=== PATIENT | male | born 1990 | race Two or more races ===

== ENCOUNTER 2021-08-27 07:56 | Inpatient (IN) | payer MEDICAID ==
[~2021-08-27] VITALS: Ht 167.6 cm; Wt 68.9 kg
[2021-08-27 08:26] LABS: COVID AG,FIA SOURCE NASOPHARYNGEAL
[2021-08-27 08:28] LABS: BASOPHILS % (AUTO) 0.3 % (0.0-2.0); EOSINOPHILS % (AUTO) 3.3 % (1.0-6.0); HEMATOCRIT 46.6 % (41-53); HEMOGLOBIN 15.4 g/dL (13.5-17.5); LYMPHOCYTES # (AUTO) 0.7 K/uL (1.0-4.8); LYMPHOCYTES % (AUTO) 5.2 % (22.0-44.0); MEAN CORPUSCULAR HEMOGLOBIN 27.9 pg (26.0-34.0); MEAN CORPUSCULAR VOLUME 85 fL (80-100); MONOCYTES # (AUTO) 1.4 K/uL (0.1-1.0); MONOCYTES % (AUTO) 10.1 % (2.0-9.0); NEUTROPHILS # (AUTO) 11.2 K/uL (1.8-7.7); NEUTROPHILS % (AUTO) 81.1 % (40.0-70.0); PLATELET COUNT (AUTO) 303 K/uL (150-450); RED BLOOD CELL COUNT(AUTO) 5.51 MIL/uL (4.50-5.90); RED CELL DISTRIBUTION WIDTH 14.2 % (11.5-14.5)
[2021-08-27 08:44] LABS: ANION GAP 8 mmol/L (8-16); CALCIUM, TOTAL 9.1 mg/dL (8.8-10.5); CARBON DIOXIDE 31 mmol/L (22-29); CHLORIDE 107 mmol/L (98-107); CREATININE 1.01 mg/dL (0.60-1.30); GLOMERULAR FILTR. RATE CALC > 60 mL/min (>60); GLUCOSE,RANDOM 57 mg/dL (70-110); POTASSIUM 3.7 mmol/L (3.5-5.1); SODIUM SERUM 146 mmol/L (136-145); UREA NITROGEN, BLOOD 11 mg/dL (7-18)
[2021-08-27 08:49] LABS: ALANINE AMINOTRANSFERASE 32 U/L (12-78); ALBUMIN 4.2 g/dL (3.4-5.0); ALKALINE PHOSPHATASE 104 U/L (46-116); ASPARTATE AMINOTRANSFERASE 28 U/L (15-37); BILIRUBIN,TOTAL 0.3 mg/dL (0.1-1.0); TOTAL PROTEIN, SERUM 7.3 g/dL (6.4-8.2)
[2021-08-27 09:13] LABS: AMPHET/METH SCREEN,URINE POSITIVE (NEGATIVE); BARBITURATE SCREEN, URINE NEGATIVE (NEGATIVE); BENZODIAZEPINES SCREEN,URINE NEGATIVE (NEGATIVE); CANNABINOID SCREEN,URINE POSITIVE (NEGATIVE); COCAINE SCREEN,URINE NEGATIVE (NEGATIVE); METHADONE SCREEN, URINE NEGATIVE (NEGATIVE); OPIATE SCREEN,URINE NEGATIVE (NEGATIVE)
[2021-08-27 09:19] LABS: PHENCYCLIDINE SCREEN,URINE NEGATIVE (NEGATIVE)
[2021-08-27] MEDS ORDERED: LORazepam 2 MG TABLET PO PRN (10:30)
[2021-08-27] MEDS ORDERED: ZOLPIDEM TARTRATE 10 MG TABLET PO PRN (10:30)
[2021-08-27] MEDS ORDERED: HALOPERIDOL 5 MG TABLET PO PRN (10:30)
[2021-08-28 06:05] VITALS: BP 128/82
[2021-08-28 08:40] VITALS: BP 110/69
[2021-08-28] MEDS: BACITRACIN 28 GM OINTMENT TP SCH ×2 (10:43→17:33)
[2021-08-28] MEDS ORDERED: ONDANSETRON HCL 4 MG TABLET PO PRN ×2 (11:00)
[2021-08-28] MEDS ORDERED: MAGNESIUM HYDROXIDE SUSPENSION 30 ML UDCUP PO PRN ×2 (11:00)
[2021-08-28] MEDS ORDERED: PETROLATUM,WHITE 28 GM JELLY TP PRN ×2 (11:00)
[2021-08-28] MEDS ORDERED: IBUPROFEN 400 MG TABLET PO PRN ×2 (11:00)
[2021-08-28] MEDS ORDERED: ACETAMINOPHEN 325 MG TABLET PO PRN ×2 (11:00)
[2021-08-28] MEDS ORDERED: CloNIDine HCL 0.1 MG TABLET PO PRN ×2 (11:00)
[2021-08-28] MEDS ORDERED: LOPERAMIDE HCL 2 MG CAPSULE PO PRN ×2 (11:00)
[2021-08-28] MEDS ORDERED: NICOTINE 14 MG/24 HOUR PATCH TD PRN ×2 (11:00)
[2021-08-28] MEDS ORDERED: ALBUTEROL SULFATE HFA 90 MCG/PUFF 8 GM INHALER IH PRN ×2 (11:00)
[2021-08-28] MEDS ORDERED: GuaiFENesin/D-METHORPHAN [SUGAR-FREE] 200-20MG/10 ML SYRUP UDCUP PO PRN ×2 (11:00)
[2021-08-28] MEDS ORDERED: DOCUSATE SODIUM 100 MG CAPSULE PO PRN ×2 (11:00)
[2021-08-28] MEDS ORDERED: MAG HYDROX/AL HYDROX/SIMETH ES 30 ML SUSPENSION UDCUP PO PRN ×2 (11:00)
[2021-08-28] MEDS: ARIPiprazole 5 MG TABLET PO SCH (14:24)
[2021-08-28 16:16] VITALS: BP 111/65
[2021-08-29 00:44] VITALS: BP 114/65
[2021-08-29 08:31] VITALS: BP 116/83
[2021-08-29] MEDS: BACITRACIN 28 GM OINTMENT TP SCH ×2 (08:47→17:16)
[2021-08-29] MEDS: ARIPiprazole 5 MG TABLET PO SCH (08:47)
[2021-08-29 16:32] VITALS: BP 114/65
[2021-08-30 00:46] VITALS: BP 123/80
[2021-08-30 08:30] VITALS: BP 119/83
[2021-08-30] MEDS: ARIPiprazole 5 MG TABLET PO SCH (08:45)
[2021-08-30] MEDS: BACITRACIN 28 GM OINTMENT TP SCH ×2 (09:00→17:03)
[2021-08-30 16:36] VITALS: BP 123/80
[2021-08-31 06:59] VITALS: BP 109/75
[2021-08-31 08:23] VITALS: BP 126/87
[2021-08-31] MEDS: BACITRACIN 28 GM OINTMENT TP SCH ×2 (09:21→16:57)
[2021-08-31] MEDS: ARIPiprazole 5 MG TABLET PO SCH (09:22)
[2021-08-31 16:35] VITALS: BP 116/74
[2021-09-01 00:46] VITALS: BP 103/62
[2021-09-01 07:34] LABS: COVID AG,FIA SOURCE NASOPHARYNGEAL
[2021-09-01 08:32] VITALS: BP 117/81
[2021-09-01] MEDS: BACITRACIN 28 GM OINTMENT TP SCH ×2 (09:57→18:49)
[2021-09-01] MEDS: ARIPiprazole 5 MG TABLET PO SCH (09:57)
[2021-09-01 16:29] VITALS: BP 121/77
[2021-09-02 01:19] VITALS: BP 122/74
[2021-09-02 08:55] VITALS: BP 123/73
[2021-09-02] MEDS: ARIPiprazole 5 MG TABLET PO SCH (09:16)
[2021-09-02] MEDS: BACITRACIN 28 GM OINTMENT TP SCH ×2 (09:16→16:46)
[2021-09-02 16:32] VITALS: BP 122/86
[2021-09-03 00:46] VITALS: BP 119/74
[2021-09-03 08:04] VITALS: BP 139/80
[2021-09-03 08:11] LABS: BASOPHILS % (AUTO) 0.3 % (0.0-2.0); EOSINOPHILS % (AUTO) 2.9 % (1.0-6.0); HEMATOCRIT 47.8 % (41-53); HEMOGLOBIN 15.7 g/dL (13.5-17.5); LYMPHOCYTES # (AUTO) 1.5 K/uL (1.0-4.8); LYMPHOCYTES % (AUTO) 18.4 % (22.0-44.0); MEAN CORPUSCULAR HEMOGLOBIN 27.9 pg (26.0-34.0); MEAN CORPUSCULAR HGB CONC 32.9 G/dL (31.0-37.0); MEAN CORPUSCULAR VOLUME 85 fL (80-100); MONOCYTES # (AUTO) 0.7 K/uL (0.1-1.0); MONOCYTES % (AUTO) 9.1 % (2.0-9.0); NEUTROPHILS # (AUTO) 5.6 K/uL (1.8-7.7); NEUTROPHILS % (AUTO) 69.3 % (40.0-70.0); PLATELET COUNT (AUTO) 284 K/uL (150-450); RED BLOOD CELL COUNT(AUTO) 5.63 MIL/uL (4.50-5.90); RED CELL DISTRIBUTION WIDTH 14.7 % (11.5-14.5)
[2021-09-03 08:32] LABS: ANION GAP 5 mmol/L (8-16); CALCIUM, TOTAL 8.9 mg/dL (8.8-10.5); CARBON DIOXIDE 31 mmol/L (22-29); CHLORIDE 106 mmol/L (98-107); GLOMERULAR FILTR. RATE CALC > 60 mL/min (>60); GLUCOSE,RANDOM 98 mg/dL (70-110); POTASSIUM 4.3 mmol/L (3.5-5.1); SODIUM SERUM 142 mmol/L (136-145); UREA NITROGEN, BLOOD 10 mg/dL (7-18)
[2021-09-03] MEDS: ARIPiprazole 5 MG TABLET PO SCH (09:31)
[2021-09-03] MEDS ORDERED: INFLUENZA VIRUS VACCINE QVS 2021-22 (6MO+)/PF 60 MCG/0.5 ML SYRINGE IM. ONE (14:00)
[2021-09-03 16:37] VITALS: BP 115/65
[2021-09-04 00:59] VITALS: BP 128/73
[2021-09-04 08:42] VITALS: BP 117/69
[2021-09-04] MEDS: ARIPiprazole 5 MG TABLET PO SCH (09:59)
[2021-09-04 16:25] VITALS: BP 118/70
[2021-09-05 01:50] VITALS: BP 119/73
[2021-09-05 08:25] VITALS: BP 112/60
[2021-09-05] MEDS: ARIPiprazole 5 MG TABLET PO SCH (09:43)
[2021-09-05] MEDS ORDERED: ARIP5TAB37 PO (12:56)
== END 2021-09-05 16:30 | disposition home or self-care (01) | DRG 750 ==
LOC: EMS 07:56 → B2S 16:14
PROVIDERS: ADMIT Psychiatry & Neurology Psychiatry; ATTEND Psychiatry & Neurology Psychiatry
DX: F20.0 Paranoid schizophrenia (principal); E87.0 Hyperosmolality and hypernatremia; D72.829 Elevated white blood cell count, unspecified; F12.90 Cannabis use, unspecified, uncomplicated; F15.10 Other stimulant abuse, uncomplicated; Z20.822 Contact with and (suspected) exposure to COVID-19; R45.850 Homicidal ideations; Z65.3 Problems related to other legal circumstances; Z79.899 Other long term (current) drug therapy
CPT/HCPCS: 80048; 80053; 80061; 85025; 99285; G0480